=== PATIENT | male | born 1935 | race Caucasian/White ===

== ENCOUNTER 2020-09-22 17:00 | Emergency (ER) | payer OTHER, SELFPAY ==
[~2020-09-22] VITALS: Ht 172.7 cm; Wt 83.9 kg
--- NOTE | 2020-09-22 17:12 | NUR ---
Placed in room 01 . Placed on pvc monitor, blood pressure machine and pulse oximeter. To gown for exam. Side rails up.
[2020-09-22 17:13] VITALS: BP_SYST 158
--- NOTE | 2020-09-22 17:13 | NUR ---
Pt bib ambulance due to being found on the floor by son at home. Pt reports being on the floor for two hours. No trauma noted no nausea or vomitting present. Pt reports his blood pressure drops and he gets shakey and weak and went down to the bathroom floor and could not getup. Pt is AAOX4 speaking full sentences with equal date night sitter strength bilaterally. Breathing is even and unlabored and lungs are CTA bilaterally. Pt resting in rney VSS no distress noted.
--- NOTE | 2020-09-22 17:15 | NUR ---
# 20 gauge angiocath placed to LAC. Use of asceptic technique. Opsite placed over site. Blood return noted. Blood for lab drawn from site. Flushed with 10 cc of normal saline. No evidence of infiltration noted. Patient tolerated well.
--- NOTE | 2020-09-22 17:16 | NUR ---
Blood collected and sent to lab.
--- NOTE | 2020-09-22 17:50 | NUR ---
Urine specimen and covid specimen collected and sent to lab.
[2020-09-22] MEDS ORDERED: ALEN70TA80 PO (18:49)
[2020-09-22] MEDS ORDERED: FAMO20TA8 PO (18:49)
[2020-09-22] MEDS ORDERED: TAMS-11 PO (18:49)
[2020-09-22] MEDS ORDERED: ZIA2.5/6.25 PO (18:49)
[2020-09-22] MEDS ORDERED: DULO20CA PO (18:49)
[2020-09-22] MEDS ORDERED: SYN50 PO (18:49)
[2020-09-22] MEDS ORDERED: DABI150C PO (18:49)
[2020-09-22] MEDS ORDERED: FINA5TAB3 PO (18:49)
--- NOTE | 2020-09-22 18:49 | NUR ---
Medication reconciliation completed with information provided by Taurus Garcia. Any prior medication reconciliation on file was reviewed and corrected.
--- NOTE | 2020-09-22 18:52 | NUR ---
ER at bedside examining patient.
[2020-09-22] MEDS: NACL 0.9% 1,000 ML IV ONE (19:08)
[2020-09-22 19:10] LABS: BASOPHILS % (AUTO) 0.2 % (0.0-2.0); EOSINOPHILS # (AUTO) 0.1 K/uL (0.0-0.4); HEMATOCRIT 41.6 % (36-54); HEMOGLOBIN 13.7 g/dL (14.0-18.0); LYMPHOCYTES # (AUTO) 1.3 K/uL (1.0-5.5); LYMPHOCYTES % (AUTO) 14.7 % (20.5-51.5); MEAN CORPUSCULAR HEMOGLOBIN 30 pg (27-31); MEAN CORPUSCULAR HGB CONC 33 % (32-36); MEAN CORPUSCULAR VOLUME 92 fL (79.0-98.0); MONOCYTES % (AUTO) 10.8 % (1.7-9.3); NEUTROPHILS # (AUTO) 6.7 K/uL (1.8-7.7); NEUTROPHILS % (AUTO) 73.3 % (40.0-70.0); PLATELET COUNT (AUTO) 161 K/uL (130-430); RED BLOOD CELL COUNT(AUTO) 4.53 MIL/uL (4.2-6.2); RED CELL DISTRIBUTION WIDTH 15.4 % (9.0-15.0); WHITE BLOOD COUNT (AUTO) 9.1 K/uL (4.8-10.8)
--- NOTE | 2020-09-22 19:15 | NUR ---
Report given to Angela SANTIAGO.
--- NOTE | 2020-09-22 19:20 | NUR ---
Pt laying in gurney with eyes closed. VS WNL, no s/s of distress noted.
[2020-09-22 19:22] LABS: INR 1.4 (0.80-1.20)
[2020-09-22 19:26] LABS: BILIRUBIN,URINE NEGATIVE (NEGATIVE); BLOOD, URINE 1+ (NEGATIVE); CLARITY/URINE CLEAR (CLEAR); COLOR,URINE YELLOW (YELLOW); GLUCOSE,URINE TRACE (NEGATIVE); KETONES,URINE NEGATIVE (NEGATIVE); LEUKOCYTE ESTERASE ,URINE NEGATIVE (NEGATIVE); NITRITE, URINE NEGATIVE (NEGATIVE); PH,URINE 5.5 (5.0-8.0); PROTEIN URINE NEGATIVE (NEGATIVE); UROBILINOGEN,URINE 0.2 (0.2-1.0)
--- NOTE | 2020-09-22 19:26 | NUR ---
CXRAY at bedside, pt tolerating well.
[2020-09-22 19:29] LABS: ANION GAP 9 (5-15); CALCIUM 8.1 mg/dL (8.4-11.0); CHLORIDE 113 mmol/L (98-107); CREATININE 1.86 mg/dL (0.55-1.30); GLUCOSE 134 mg/dL (70-99); POTASSIUM 4.7 mmol/L (3.5-5.1); SODIUM SERUM 146 mmol/L (136-145); UREA NITROGEN, BLOOD 52 mg/dL (8-21)
[2020-09-22 19:34] LABS: ALANINE AMINOTRANSFERASE 20 U/L (12-78); ALBUMIN 2.9 g/dL (3.4-4.8); ASPARTATE AMINOTRANSFERASE 11 U/L (10-37); TOTAL BILIRUBIN 1.4 mg/dL (0.0-1.0)
--- NOTE | 2020-09-22 19:35 | NUR ---
[facility]
[2020-09-22 19:42] LABS: ALCOHOL, BLOOD < 3 mg/dL (<10)
--- NOTE | 2020-09-22 19:43 | NUR ---
Pt back to room [address]
[2020-09-22 19:52] LABS: BARBITURATE, URINE NEGATIVE (NEG <=200); BENZODIAZEPINE, URINE NEGATIVE (NEG <=150); CANNABINOID, URINE NEGATIVE (NEG <=50); COCAINE, URINE NEGATIVE (NEG <=150); METHAMPHETAMINES SCREEN,URINE NEGATIVE (NEG <=500); OPIATE, URINE NEGATIVE (NEG <=100); PHENCYCLIDINE SCREEN,URINE NEGATIVE (NEG <=25); UR TRICYCLIC ANTIDEPRESSANTS NEGATIVE (NEG <=300); URINE AMPHETAMINE NEGATIVE (NEG <=500); URINE METHADONE NEGATIVE (NEG <=200); URINE OXYCODONE SCREEN NEGATIVE (NEG <=100); URINE PROPOXYPHENE SCREEN NEGATIVE (NEG <=300)
--- NOTE | 2020-09-22 20:23 | NUR ---
Pt laying in gurney with eyes closed, no s/s of distress noted.
[2020-09-22 20:30] LABS: BACTERIA,URINE FEW /HPF (None Seen); MUCUS,URINE None Seen /LPF (None Seen); WBC,URINE 0-3 /HPF (0-3)
--- NOTE | 2020-09-22 21:23 | NUR ---
Dr. Hung at the bedside speaking with pt and discussing plan of care.
--- NOTE | 2020-09-22 21:26 | NUR ---
Dr. Hung speaking to randall Guzman over the phone and providing updates.
--- NOTE | 2020-09-22 22:45 | NUR ---
Pt laying in gurney with eyes closed, pt denies any pain or discomfort.
[2020-09-22 23:10] VITALS: BP_SYST 148
--- NOTE | 2020-09-23 00:15 | NUR ---
Patient to be transferred to [facility]. Is being transferred due to insuarance purposes. Receiving facility has accepting physician and available space. ER physician has signed transfer form. Patient or responsible democrat has agreed to transfer and signed form. Patient belongings inventoried and will be sent with patient. Copy of nursing notes, lab reports, EKG, Physicians Orders and X-rays to be sent with patient. Report called to Taylor SANTIAGO at receiving facility.
== END 2020-09-23 00:35 ==
LOC: SED 17:00
DX: I48.91 Unspecified atrial fibrillation (principal); E11.9 Type 2 diabetes mellitus without complications; Z79.899 Other long term (current) drug therapy; Z20.822 Contact with and (suspected) exposure to COVID-19
CPT/HCPCS: 36415; 70450; 71045; 76376; 80053; 80307; 81000; 82962; 84484; 85025; 85610; 85730; 87426; 93005; 96360; 99285; G0482; J7030